=== PATIENT | female | born 1970 | race Caucasian/White ===

== ENCOUNTER → 2016-07-29 | Outpatient (CLI) | payer OTHER ==
[~2016-07-29] MED LIST: BCPILLS PO; CETI10TA84 PO; FLUT0.15 NAE; LORA-741 PO; OXYC-57 PO; VENL75CA PO
--- NOTE | 2016-07-30 12:37 | MAMMOGRAPHY REPORT ---
BILATERAL DIGITAL SCREENING MAMMOGRAM TOMOSYNTHESIS WITH CAD: 07/29/2016 CLINICAL HISTORY: Routine screening. Patient has no complaints. TECHNIQUE: Breast tomosynthesis in addition to standard 2D mammography was performed. Current study was also evaluated with a Computer Aided Detection (CAD) system. COMPARISON: Comparison is made to exams dated: 07/05/2013 mammogram, 02/20/2011 mammogram - [facility], and 01/14/2009. BREAST COMPOSITION: There are scattered areas of fibroglandular density in both breasts. The breas t parenchyma is increasingly fatty replaced compared to prior mammograms. FINDINGS: No suspicious mass, architectural distortion or cluster of microcalcifications is seen. IMPRESSION: ACR BI-RADS CATEGORY 1: NEGATIVE There is no mammographic evidence of malignancy. A 1 year screening mammogram is recommended. The p atient will receive written notification of the results. Approximately 10% of breast cancers are not detected with mammography. A negative mammographic repor t should not delay biopsy if a clinically suggestive mass is present. Felisa Lino M.D. ay/:07/29/2016 22:08:04 Plate Printer: Nimco MONTEIRO(Beltran)(Elsy), [facility] letter sent: Normal 1/2 BI-RADS Code: ACR BI-RADS Category 1: Negative
== END | disposition home or self-care (01) ==
LOC: C.MAMM 10:02
PROVIDERS: ATTEND Obstetrics & Gynecology
DX: Z12.31 Encounter for screening mammogram for malignant neoplasm of breast (principal)

== ENCOUNTER 2016-08-31 09:20 | Observation (INO) | payer OTHER ==
[~2016-08-31] VITALS: Ht 165.1 cm; Wt 96.5 kg
[2016-08-31] VITALS (7 sets, daily range): BP systolic 127–145; BP diastolic 83–92; PULSE 79–91; TEMP 36.4–37; O2SAT 94–99; Ht 165.1 cm; Wt 96.5 kg
[2016-08-31] MEDS ORDERED: SODIUM CHLORIDE 0.9% 1000ML 1,000 ML IV STA (09:44)
[2016-08-31] MEDS ORDERED: ONDANSETRON INJ 2 MG/ML 2 ML VIAL IV STA (09:44)
[2016-08-31] MEDS ORDERED: SODIUM CHLORIDE 0.9% 1000ML 500 ML IV STA (09:44)
[2016-08-31 09:56] LABS: BASO % 0.2 %; BASO ABS # 0.02 K/uL (0-0.2); COMPLETE YES; EOS % 1.7 %; HEMATOCRIT 42.2 % (37-47); IG% 0.2 %; LYMPH % 28.8 %; LYMPH ABS # 2.68 K/uL (1.2-3.4); MEAN CELL VOLUME 87.9 fL (80-100); MEAN CORPUSCULAR HEMOGLOBIN 30.8 pg (25-34); MEAN CORPUSCULAR HGB CONC 35.1 g/dl (32-36); MEAN PLATELET VOLUME 10.3 fL (7.4-10.4); MONO % 6.5 %; NEUT % 62.6 %; PLATELET COUNT 271 K/uL (130-400); WHITE BLOOD COUNT 9.32 K/uL (4.8-10.8)
[2016-08-31] MEDS ORDERED: OPTIRAY 320 IV PRN (10:00)
[2016-08-31] MEDS ORDERED: LORA-741 PO (10:01)
[2016-08-31] MEDS ORDERED: CETI10TA84 PO (10:01)
[2016-08-31] MEDS ORDERED: FLUT0.15 NAE (10:01)
[2016-08-31] MEDS ORDERED: VENL75CA PO (10:01)
[2016-08-31] MEDS ORDERED: BCPILLS PO (10:01)
[2016-08-31 10:14] LABS: PREG INTERNAL NEGATIVE QC NEG CLEAR BACKGROUND; PREG INTERNAL POSITIVE QC POS CONTROL LINE
[2016-08-31 10:24] LABS: ALB/GLOB RATIO 0.8 (0.9-2); CALCIUM 8.4 mg/dl (8.5-10.1); CREATININE 0.93 mg/dl (0.60-1.20); POTASSIUM 3.8 mmol/L (3.5-5.1)
--- NOTE | 2016-08-31 11:06 | DIAGNOSTIC IMAGING REPORT ---
ABDOMINAL ULTRASOUND, RIGHT LOWER QUADRANT HISTORY: Pain. Nausea. ABDOMINAL PAIN. COMPARISON: None. FINDINGS: The appendix is not identified ultrasonically. IMPRESSION: The appendix is not identified ultrasonically Electronically signed by: Memo Amos M.D. 08/31/2016 11:04 AM Dictated Date/Time: 08/31/2016 11:03 AM
--- NOTE | 2016-08-31 11:08 | DIAGNOSTIC IMAGING REPORT ---
ULTRASOUND OF THE PELVIS CLINICAL HISTORY: Right pelvic pain. COMPARISON STUDY: No priors. TECHNIQUE: Real-time, grayscale, and color flow sonography of the pelvis is performed both transabdominally and endovaginally. Images are reviewed in the transverse and longitudinal planes. FINDINGS: Uterus: The uterus is normal in size and echotexture, measuring 8.0 x 4.6 x 4.9 cm. Endometrium: The endometrium is normal in appearance, and the endometrial stripe is normal in thickness measuring up to 0.4 cm. Ovaries: The right ovary was not visualized. The left ovary is normal in appearance and measures 1.5 x 0.7 x 1.0 cm. Normal Doppler waveforms are shown within the left ovary. Pelvis: There is trace free fluid in the cul-de-sac. No concerning adnexal lesion is seen. A hypoechoic tubular structure in the right adnexa is indeterminant. IMPRESSION: 1. Unremarkable sonographic assessment of the uterus and left ovary. 2. The right ovary was not visualized. 3. A hypoechoic tubular structure in the right adnexa is indeterminant and may represent hydrosalpinx. 4. There is trace free fluid in the cul-de-sac, likely within physiologic limits. Electronically signed by: Ralph Mcelroy M.D. 08/31/2016 11:06 AM Dictated Date/Time: 08/31/2016 11:04 AM
--- NOTE | 2016-08-31 12:44 | DIAGNOSTIC IMAGING REPORT ---
ABDOMEN AND PELVIS CT WITH IV AND ORAL CONTRAST CT DOSE: 842.39 mGy.cm HISTORY: Flank pain ABDOMINAL PAIN/GI TECHNIQUE: Multiaxial CT images of the abdomen and pelvis were performed following the use of intravenous and oral contrast. COMPARISON STUDY: None. FINDINGS: Lung bases are clear. Liver spleen and pancreas enhance uniformly. Gallbladder is normal. Kidneys enhance uniformly. They are negative for hydronephrosis. Bowel pattern overall is nonobstructive. The appendix is identified inferior to the cecum at approximately level of the right superiorly iliac crest. It has maximum diameter 10 to 11 mm. There is moderate rachel appendiceal infiltrative change. There is no evidence for abscess collection or phlegmon. There are no bowel obstructive changes. Uterus is anteflexed. Bladder is midline. There is no significant free fluid within the pelvic cul-de-sac. IMPRESSION: 1. Acute appendicitis.. 2. Moderate periappendiceal infiltrative change. 3. No evidence for abscess collection or obstructive change. Electronically signed by: Memo Amos M.D. 08/31/2016 12:43 PM Dictated Date/Time: 08/31/2016 12:39 PM
[2016-08-31] MEDS ORDERED: LIDOCAINE HCL 2% 2 ML VIAL (20MG/ML) ONE (13:25)
[2016-08-31] MEDS ORDERED: PROPOFOL IV EMULSION 10 MG/ML 20 ML VIAL IV ONE (13:25)
[2016-08-31] MEDS ORDERED: MIDAZOLAM HCL 1 MG/ML 2ML VIAL ONE (13:25)
[2016-08-31] MEDS ORDERED: NEOSTIGMINE METHYLSULFATE 5 MG/5 ML SYR ONE (13:25)
[2016-08-31] MEDS ORDERED: LARYING-O-JET KIT (LTA) EXT ONE ×4 (13:25→14:26)
[2016-08-31] MEDS ORDERED: DEXAMETHASONE SOD INJ 4 MG/ML VIAL ONE (13:25)
[2016-08-31] MEDS ORDERED: ONDANSETRON INJ 2 MG/ML 2 ML VIAL ONE (13:25)
[2016-08-31] MEDS ORDERED: FENTANYL CITRATE INJ 50 MCG/1 ML 2 ML VIAL ONE ×2 (13:25)
[2016-08-31] MEDS ORDERED: ROCURONIUM BROMIDE 10 MG/ML 5 ML VIAL ONE (13:25)
[2016-08-31] MEDS ORDERED: KETOROLAC TROMETHAMINE 30 MG/ML VIAL ONE (13:25)
[2016-08-31] MEDS ORDERED: GLYCOPYRROLATE INJ 0.2 MG/ML VIAL ONE (13:25)
[2016-08-31] MEDS ORDERED: CEFAZOLIN SOD 1 GM VIAL ONE (13:26)
--- NOTE | 2016-08-31 13:37 | History and Physical ---
History & Physical Date & Time of Service: Aug 31, 2016 at 13:26 Chief Complaint: Nausea, Lower Rt Abd. Pain Primary Care Physician: Stanford Mayer M.D. History of Present Illness Source: patient Arlen is a pleasant 46 year-old female who presented to emergency department today with complaint of RLQ abdominal pain since Wednesday evening with associated nausea. Arlen states that she thought she was getting her period due to the abdominal cramping however the pain persisted and was different than her usual menstrual cramps. Arlen states the nausea was intense Wednesday evening. Was in her normal state of health on Wednesday. Denies of any fever, chills, vomiting, diarrhea, constipation, or blood in stools. No previous abdominal surgeries. No blood thinning agents. CT scan of abdomen and pelvis shows a dilated appendix measuring 10-11 mm in diameter with rachel-appendiceal inflammation. NO signs of abscess or perforation. No leukocytosis and afebrile on arrival to ED. Currently her pain is minimal. Mostly in the RLQ. No severe pain, no fevers, or chills. Past Medical/Surgical History 1. Seasonal allergies 2. History of tooth extraction requiring oral surgery Family History Ovarian cyst Social History Smoking Status: Never Smoker Alcohol Use: occasionally Drug Use: none Marital Status: Housing status: lives with family Occupational Status: employed Multi-Drug Resistant Organisms History of MDRO: No Allergies Coded Allergies: Amoxicillin (Verified Allergy, Unknown, hives, 08/31/16) Home Medications Scheduled Control Pills ( Control Pills), 1 TAB PO DAILY Cetirizine (Zyrtec), 10 MG PO DAILY Fluticasone Propionate (Nasal) (Flonase Allergy Relief), 1 SPRAY YOSI DAILY Venlafaxine Hcl (Effexor Xr), 75 MG PO DAILY Scheduled PRN Lorazepam (Ativan), 0.5 MG PO DAILY PRN for Anxiety Review of Systems Constitutional: No chills, No fever, No sweats Respiratory: No shortness of breath Cardiovascular: No chest pain Abdomen: + nausea, + pain (RLQ), No constipation, No diarrhea, No vomiting Genitourinary - Female: No dysuria, No urinary frequency, No urinary urgency Allergic / Immunologic: + food allergies, + seasonal allergies Physical Exam Vital Signs Date Time Temp Pulse Resp B/P Pulse Ox O2 Delivery O2 Flow Rate FiO2 08/31/16 13:02 82 20 181/115 98 Room Air 08/31/16 11:17 78 20 152/99 99 Room Air 08/31/16 09:28 37.2 101 20 182/108 98 Room Air General Appearance: WD/WN, no apparent distress Head: normocephalic, atraumatic Eyes: sclerae normal ENT: hearing grossly normal Neck: supple, trachea midline Respiratory/Chest: lungs clear, normal breath sounds, no respiratory distress, no accessory muscle use Cardiovascular: regular rate, rhythm, no edema, no gallop, no murmur Abdomen/GI: soft, no organomegaly, no pulsatile mass, + tenderness (RLQ, ) Neurologic/Psych: alert, normal mood/affect, oriented x 3 Skin: normal color, warm/dry, no rash Diagnostics Laboratory Results Results Past 24 Hours Test 08/31/16 09:38 Range/Units White Blood Count 9.32 4.8-10.8 K/uL Red Blood Count 4.80 4.2-5.4 M/uL Hemoglobin 14.8 12.0-16.0 g/dL Hematocrit 42.2 37-47 % Mean Corpuscular Volume 87.9 80-100 fL Mean Corpuscular Hemoglobin 30.8 25-34 pg Mean Corpuscular Hemoglobin Concent 35.1 32-36 g/dl Platelet Count 271 130-400 K/uL Mean Platelet Volume 10.3 7.4-10.4 fL Neutrophils (%) (Auto) 62.6 % Lymphocytes (%) (Auto) 28.8 % Monocytes (%) (Auto) 6.5 % Eosinophils (%) (Auto) 1.7 % Basophils (%) (Auto) 0.2 % Neutrophils # (Auto) 5.83 1.4-6.5 K/uL Lymphocytes # (Auto) 2.68 1.2-3.4 K/uL Monocytes # (Auto) 0.61 0.11-0.59 K/uL Eosinophils # (Auto) 0.16 0-0.5 K/uL Basophils # (Auto) 0.02 0-0.2 K/uL RDW Standard Deviation 42.9 36.4-46.3 fL RDW Coefficient of Variation 13.2 11.5-14.5 % Immature Granulocyte % (Auto) 0.2 % Immature Granulocyte # (Auto) 0.02 0.00-0.02 K/uL Sodium Level 141 136-145 mmol/L Potassium Level 3.8 3.5-5.1 mmol/L Chloride Level 108 98-107 mmol/L Carbon Dioxide Level 27 21-32 mmol/L Anion Gap 6.0 3-11 mmol/L Blood Urea Nitrogen 17 7-18 mg/dl Creatinine 0.93 0.60-1.20 mg/dl Est Creatinine Clear Calc Drug Dose 85.0 ml/min Estimated GFR () 84.2 Estimated GFR (Non- 72.7 BUN/Creatinine Ratio 18.0 10-20 Random Glucose 91 70-99 mg/dl Calcium Level 8.4 8.5-10.1 mg/dl Total Bilirubin 0.3 0.2-1 mg/dl Aspartate Amino Transf (AST/SGOT) 24 15-37 U/L Alanine Aminotransferase (ALT/SGPT) 38 12-78 U/L Alkaline Phosphatase 123 45-117 U/L Total Protein 8.1 6.4-8.2 gm/dl Albumin 3.6 3.4-5.0 gm/dl Globulin 4.5 2.5-4.0 gm/dl Albumin/Globulin Ratio 0.8 0.9-2 Lipase 153 73-393 U/L Human Chorionic Gonadotropin, Qual NEG NEG Chemistry Specimen Hemolysis Diagnostic Radiology ABDOMEN AND PELVIS CT WITH IV AND ORAL CONTRAST CT DOSE: 842.39 mGy.cm HISTORY: Flank pain ABDOMINAL PAIN/GI TECHNIQUE: Multiaxial CT images of the abdomen and pelvis were performed following the use of intravenous and oral contrast. COMPARISON STUDY: None. FINDINGS: Lung bases are clear. Liver spleen and pancreas enhance uniformly. Gallbladder is normal. Kidneys enhance uniformly. They are negative for hydronephrosis. Bowel pattern overall is nonobstructive. The appendix is identified inferior to the cecum at approximately level of the right superiorly iliac crest. It has maximum diameter 10 to 11 mm. There is moderate rachel appendiceal infiltrative change. There is no evidence for abscess collection or phlegmon. There are no bowel obstructive changes. Uterus is anteflexed. Bladder is midline. There is no significant free fluid within the pelvic cul-de-sac. IMPRESSION: 1. Acute appendicitis.. 2. Moderate periappendiceal infiltrative change. 3. No evidence for abscess collection or obstructive change. Impression Assessment and Plan Acute Appendicitis - dilated measuring 10-11 mm, periappendiceal inflammation seen on CT scan. - no leukocytosis - afebrile - no evidence of perforation or abscess formation Plan: Plan to take patient to Operating room for laparoscopic appendectomy Informed patient of procedure and risks including bleeding, infection, injury to surrounding organs and tissue, cardiopulmonary complications, post-op seroma or hematoma patient understood and informed consent obtained. Will determine need for overnight stay following procedure Dr. Cano has seen and examined patient, agrees with above stated findings and treatment plan.
[2016-08-31] MEDS ORDERED: ONDANSETRON INJ 2 MG/ML 2 ML VIAL IV PRN ×3 (13:45→14:00)
[2016-08-31] MEDS ORDERED: ACETAMINOPHEN 325 MG TAB PO PRN (13:45)
[2016-08-31] MEDS ORDERED: OXYCODONE/ACETAMINOPHEN 5-325 TAB PO PRN (13:45)
[2016-08-31] MEDS ORDERED: EpHEDrine SULFATE INJ 50 MG/ML AMP IV PRN ×2 (13:45→14:00)
[2016-08-31] MEDS ORDERED: POLYETHYLENE (MIRALAX) 17 GM PACK PO PRN (13:45)
[2016-08-31] MEDS ORDERED: ALUMINUM/MAGNESIUM/SIMETH (MAALOX MAX) 30 ML UDC PO PRN (13:45)
[2016-08-31] MEDS ORDERED: FENTANYL CITRATE INJ 50 MCG/1 ML 2 ML VIAL IV PRN ×2 (13:45→14:00)
[2016-08-31] MEDS ORDERED: HYDROmorphone INJ 1 MG/ML SYR IV PRN ×2 (13:45→14:00)
[2016-08-31] MEDS ORDERED: ATROPINE SULFATE 0.1 MG/ML 5ML SYR IV PRN ×2 (13:45→14:00)
[2016-08-31] MEDS ORDERED: ZOLPIDEM TARTRATE 5 MG TAB PO PRN (13:45)
[2016-08-31] MEDS ORDERED: MAGNESIUM HYDROXIDE SUSP 30 ML UDC PO PRN (13:45)
[2016-08-31] MEDS ORDERED: MEPERIDINE HCL 25 MG/ML CARP IV PRN ×2 (13:45→14:00)
[2016-08-31] MEDS ORDERED: MoRPHine SULFATE 2 MG/ML CARP IV PRN (13:45)
[2016-08-31] MEDS ORDERED: LABETALOL HCL IV 5 MG/ML 20ML IV PRN ×2 (13:45→14:00)
[2016-08-31] MEDS ORDERED: IV FLUIDS COMPLETED PRN (14:00)
[2016-08-31] MEDS ORDERED: BUPIVACAINE/EPINEPHRINE 0.5% MPF 1:200,000 30 ML VIAL ONE (14:10)
--- NOTE | 2016-08-31 14:45 | [facility] Post Operative Brief Note ---
Immediate Operative Summary Operative Date Aug 31, 2016. Pre-Operative Diagnosis acute appendicitis Post-Operative Diagnosis same Procedure(s) Performed laparoscopic appendectomy Surgeon taina Vault Custodian Surgeon(s) mason Estimated Blood Loss 5cc Findings acute appendicitis Specimens appendix Drains none Anesthesia GETA w/marcaine Complication(s) None Disposition Recovery Room / PACU
[2016-08-31] MEDS ORDERED: OXYC-57 PO (14:48)
--- NOTE | 2016-08-31 14:51 | Discharge Instructions ---
Discharge Instructions Date of Service Aug 31, 2016. Admission Reason for Admission: Nausea, Lower Rt Abd. Pain Discharge Discharge Diagnosis / Problem: acute appendicitis Discharge Goals Goal(s): Therapeutic intervention Activity Recommendations Activity Limitations: per Instructions/Follow-up section Lifting Limitations: no more than 25 pounds Exercise/Sports Limitations: as tolerated May Resume Sexual Activity: when tolerated Shower/Bathe: tomorrow Driving or Machine Use: resume 3 days after discharge (as long as not taking narcotics) . Current Hospital Diet Patient's current hospital diet: Clear Liquid Diet Discharge Diet Recommended Diet: Regular Diet Procedures Procedures Performed: laparoscopic appendectomy Pending Studies Studies pending at discharge: no Work Instructions Return To Work: after follow-up Additional Instructions: return on light duty as tolerated Medical Emergencies . Who to Call and When: Medical Emergencies: If at any time you feel your situation is an emergency, please call 911 immediately. . Non-Emergent Contact Non-Emergency issues call your: Primary Care Provider, Surgeon Call Non-Emergent contact if: temperature is above 101.5, your pain is not controlled, your pain is worsening, your pain is concerning you, wound has increased redness, wound has increased pain . "Provider Documentation" section prepared by Evangelist Cano. VTE Core Measure Inpt VTE Proph given/why not?: SCD's [place] Drug Monitoring Program Search Results: patient reviewed within database
--- NOTE | 2016-08-31 15:10 | EMERGENCY ROOM VISIT NOTE ---
History Report prepared by Meng: Jeanette Gibson Under the Supervision of: Dr. Ralph Rogers M.D. First contact with patient: 09:39 Chief Complaint: ABDOMINAL PAIN Stated Complaint: NAUSEA, LOWER RT ABD. PAIN Nursing Triage Summary: Patient reports RLQ pain since early Wednesday morning with nausea. Patient denies any vomiting or diarrhea. Patient at first thought that the pain was cramping because it is time for her menses. History of Present Illness The patient is a 46 year old female who presents to the Emergency Room with complaints of persistent RLQ pain starting 3 days ago. She rates her discomfort as a 3/10 in severity. In the middle of the night 3 days ago, she began to experience cramping and nausea. She initially attributed it to her menstrual period, but her period has not started. She spent a lot of the next day sleeping. Yesterday, she experienced this pain all day and it continues on today , prompting her to present to the ED. She notices the pain more when she walks, bends over, or presses on the area. She is also experiencing nausea. She denies any urinary symptoms, vaginal discharge, diarrhea, fever, chills, or constipation. She reports that she still has her appendix and gallbladder. She denies any history of ovarian cysts, but adds that her mother has had ovarian cysts before. She does not believe that she is . She has no history of abdominal surgery. Source of History: patient Onset: 3 days ago Position: abdomen (RLQ) Symptom Intensity: 3/10 Timing: other (persistent) Modifying Factors (Worsening): movement, other (palpation) Associated Symptoms: No chills, No diarrhea, No fevers, No urinary symptoms Note: Pt denies constipation or vaginal discharge. Review of Systems See HPI for pertinent positives & negatives. A total of 10 systems reviewed and were otherwise negative. Past Medical & Surgical Medical Problems: (1) Appendicitis (2) No Known Active Medical Problems Family History Ovarian cyst Social History Smoking Status: Never Smoker Marital Status: Housing Status: lives with family Occupation Status: employed Current/Historical Medications Scheduled Control Pills ( Control Pills), 1 TAB PO DAILY Cetirizine (Zyrtec), 10 MG PO DAILY Fluticasone Propionate (Nasal) (Flonase Allergy Relief), 1 SPRAY YOSI DAILY Venlafaxine Hcl (Effexor Xr), 75 MG PO DAILY Scheduled PRN Lorazepam (Ativan), 0.5 MG PO DAILY PRN for Anxiety Oxycodone/Acetaminophen 5MG/325MG (Percocet 5MG/325MG), 1 TABLET PO Q4H PRN for Pain Allergies Coded Allergies: Amoxicillin (Verified Allergy, Unknown, hives, 08/31/16) Physical Exam Vital Signs Date Time Temp Pulse Resp B/P Pulse Ox O2 Delivery O2 Flow Rate FiO2 08/31/16 13:42 78 20 183/113 100 08/31/16 13:29 99 Room Air 08/31/16 13:02 82 20 181/115 98 Room Air 08/31/16 11:17 78 20 152/99 99 Room Air 08/31/16 09:28 37.2 101 20 182/108 98 Room Air Physical Exam GENERAL: Patient is in no acute distress. HEENT: No acute trauma, normocephalic atraumatic, mucous membranes moist, no nasal congestion, no scleral icterus. NECK: No stridor, no adenopathy, no meningismus, trachea is midline. LUNGS: Clear to auscultation bilaterally, no wheeze, no rhonchi, breath sounds equal. HEART: 2/6 systolic murmur. Regular rate and rhythm. ABDOMEN: Soft, moderately tender in RLQ, bowel sounds positive, no hernias, no peritonitis. EXTREMITIES: No cyanosis or edema, full range of motion of all the joints without pain or difficulty, no signs for acute trauma. NEUROLOGIC: Oriented x 3, no acute motor or sensory deficits, no focal weakness. SKIN: No rash, no jaundice, no diaphoresis. Medical Decision & Procedures ER Provider Diagnostic Interpretation: Radiology results and stated below per my review and radiologist interpretation: ABDOMINAL ULTRASOUND, RIGHT LOWER QUADRANT HISTORY: Pain. Nausea. ABDOMINAL PAIN. COMPARISON: None. FINDINGS: The appendix is not identified ultrasonically. IMPRESSION: The appendix is not identified ultrasonically Electronically signed by: Memo Amos M.D. 08/31/2016 11:04 AM Dictated Date/Time: 08/31/2016 11:03 AM ULTRASOUND OF THE PELVIS CLINICAL HISTORY: Right pelvic pain. COMPARISON STUDY: No priors. TECHNIQUE: Real-time, grayscale, and color flow sonography of the pelvis is performed both transabdominally and endovaginally. Images are reviewed in the transverse and longitudinal planes. FINDINGS: Uterus: The uterus is normal in size and echotexture, measuring 8.0 x 4.6 x 4.9 cm. Endometrium: The endometrium is normal in appearance, and the endometrial stripe is normal in thickness measuring up to 0.4 cm. Ovaries: The right ovary was not visualized. The left ovary is normal in appearance and measures 1.5 x 0.7 x 1.0 cm. Normal Doppler waveforms are shown within the left ovary. Pelvis: There is trace free fluid in the cul-de-sac. No concerning adnexal lesion is seen. A hypoechoic tubular structure in the right adnexa is indeterminant. IMPRESSION: 1. Unremarkable sonographic assessment of the uterus and left ovary. 2. The right ovary was not visualized. 3. A hypoechoic tubular structure in the right adnexa is indeterminant and may represent hydrosalpinx. 4. There is trace free fluid in the cul-de-sac, likely within physiologic limits. Electronically signed by: Ralph Mcelroy M.D. 08/31/2016 11:06 AM Dictated Date/Time: 08/31/2016 11:04 AM ULTRASOUND OF THE PELVIS CLINICAL HISTORY: Right pelvic pain. COMPARISON STUDY: No priors. TECHNIQUE: Real-time, grayscale, and color flow sonography of the pelvis is performed both transabdominally and endovaginally. Images are reviewed in the transverse and longitudinal planes. FINDINGS: Uterus: The uterus is normal in size and echotexture, measuring 8.0 x 4.6 x 4.9 cm. Endometrium: The endometrium is normal in appearance, and the endometrial stripe is normal in thickness measuring up to 0.4 cm. Ovaries: The right ovary was not visualized. The left ovary is normal in appearance and measures 1.5 x 0.7 x 1.0 cm. Normal Doppler waveforms are shown within the left ovary. Pelvis: There is trace free fluid in the cul-de-sac. No concerning adnexal lesion is seen. A hypoechoic tubular structure in the right adnexa is indeterminant. IMPRESSION: 1. Unremarkable sonographic assessment of the uterus and left ovary. 2. The right ovary was not visualized. 3. A hypoechoic tubular structure in the right adnexa is indeterminant and may represent hydrosalpinx. 4. There is trace free fluid in the cul-de-sac, likely within physiologic limits. Electronically signed by: Ralph Mcelroy M.D. 08/31/2016 11:06 AM Dictated Date/Time: 08/31/2016 11:04 AM ABDOMEN AND PELVIS CT WITH IV AND ORAL CONTRAST CT DOSE: 842.39 mGy.cm HISTORY: Flank pain ABDOMINAL PAIN/GI TECHNIQUE: Multiaxial CT images of the abdomen and pelvis were performed following the use of intravenous and oral contrast. COMPARISON STUDY: None. FINDINGS: Lung bases are clear. Liver spleen and pancreas enhance uniformly. Gallbladder is normal. Kidneys enhance uniformly. They are negative for hydronephrosis. Bowel pattern overall is nonobstructive. The appendix is identified inferior to the cecum at approximately level of the right superiorly iliac crest. It has maximum diameter 10 to 11 mm. There is moderate rachel appendiceal infiltrative change. There is no evidence for abscess collection or phlegmon. There are no bowel obstructive changes. Uterus is anteflexed. Bladder is midline. There is no significant free fluid within the pelvic cul-de-sac. IMPRESSION: 1. Acute appendicitis.. 2. Moderate periappendiceal infiltrative change. 3. No evidence for abscess collection or obstructive change. Electronically signed by: Memo Amos M.D. 08/31/2016 12:43 PM Dictated Date/Time: 08/31/2016 12:39 PM Laboratory Results 08/31/16 09:38 Red Blood Count 4.80, Mean Corpuscular Volume 87.9, Mean Corpuscular Hemoglobin 30.8, Mean Corpuscular Hemoglobin Concent 35.1, Mean Platelet Volume 10.3, Neutrophils (%) (Auto) 62.6, Lymphocytes (%) (Auto) 28.8, Monocytes (%) (Auto) 6.5, Eosinophils (%) (Auto) 1.7, Basophils (%) (Auto) 0.2, Neutrophils # (Auto) 5.83, Lymphocytes # (Auto) 2.68, Monocytes # (Auto) 0.61, Eosinophils # (Auto) 0.16, Basophils # (Auto) 0.02 08/31/16 09:38 Test 08/31/16 09:38 White Blood Count 9.32 K/uL (4.8-10.8) Red Blood Count 4.80 M/uL (4.2-5.4) Hemoglobin 14.8 g/dL (12.0-16.0) Hematocrit 42.2 % (37-47) Mean Corpuscular Volume 87.9 fL (80-100) Mean Corpuscular Hemoglobin 30.8 pg (25-34) Mean Corpuscular Hemoglobin Concent 35.1 g/dl (32-36) Platelet Count 271 K/uL (130-400) Mean Platelet Volume 10.3 fL (7.4-10.4) Neutrophils (%) (Auto) 62.6 % Lymphocytes (%) (Auto) 28.8 % Monocytes (%) (Auto) 6.5 % Eosinophils (%) (Auto) 1.7 % Basophils (%) (Auto) 0.2 % Neutrophils # (Auto) 5.83 K/uL (1.4-6.5) Lymphocytes # (Auto) 2.68 K/uL (1.2-3.4) Monocytes # (Auto) 0.61 K/uL (0.11-0.59) Eosinophils # (Auto) 0.16 K/uL (0-0.5) Basophils # (Auto) 0.02 K/uL (0-0.2) RDW Standard Deviation 42.9 fL (36.4-46.3) RDW Coefficient of Variation 13.2 % (11.5-14.5) Immature Granulocyte % (Auto) 0.2 % Immature Granulocyte # (Auto) 0.02 K/uL (0.00-0.02) Anion Gap 6.0 mmol/L (3-11) Est Creatinine Clear Calc Drug Dose 85.0 ml/min Estimated GFR () 84.2 Estimated GFR (Non- 72.7 BUN/Creatinine Ratio 18.0 (10-20) Calcium Level 8.4 mg/dl (8.5-10.1) Total Bilirubin 0.3 mg/dl (0.2-1) Aspartate Amino Transf (AST/SGOT) 24 U/L (15-37) Alanine Aminotransferase (ALT/SGPT) 38 U/L (12-78) Alkaline Phosphatase 123 U/L (45-117) Total Protein 8.1 gm/dl (6.4-8.2) Albumin 3.6 gm/dl (3.4-5.0) Globulin 4.5 gm/dl (2.5-4.0) Albumin/Globulin Ratio 0.8 (0.9-2) Lipase 153 U/L (73-393) Human Chorionic Gonadotropin, Qual NEG (NEG) Chemistry Specimen Hemolysis Laboratory results reviewed by me. Medications Administered Medications (Trade) Dose Ordered Sig/Angelica Route Start Time Stop Time Status Last Admin Dose Admin Sodium Chloride (Nss 1000ml) 500 ml @ 999 mls/hr Q31M STAT IV 08/31/16 09:44 08/31/16 10:14 DC 08/31/16 09:58 999 MLS/HR Ondansetron HCl 4 mg 4 mg NOW STAT IV 08/31/16 09:44 08/31/16 09:49 DC 08/31/16 09:58 4 MG Sodium Chloride (Nss 1000ml) 1,000 ml @ 200 mls/hr Q5H STAT IV 08/31/16 09:44 08/31/16 14:43 DC 08/31/16 09:59 200 MLS/HR Cefazolin Sodium 2000 mg 2,000 mg STK-MED ONCE .ROUTE 08/31/16 13:26 08/31/16 13:30 DC 08/31/16 13:26 2,000 MG Lactated Ringer's (Lr 1000ml) 1,000 ml @ 100 mls/hr Q10H IV 08/31/16 13:45 09/30/16 13:44 08/31/16 16:13 100 MLS/HR ED Course 0942: The patient was evaluated in room A11. A complete history and physical exam was performed. 0944: NSS 1000 ml @ 200 mls/hr IV, Zofran Inj 4 mg IV, NSS 500 ml @ 999 mls/hr IV. 1124: I reevaluated the patient. She is doing fine. I updated the patient on the results. 1251: I discussed the patient's case with the general surgical services PA. They will evaluate the patient. 1256: I reevaluated the patient. I discussed with her all the results and the treatment plan. She verbalized understanding and agreement. She will be evaluated by general surgery. Medical Decision Differential diagnoses: appendicitis, ovarian cysts, musculoskeletal pain, hernia, biliary colic, UTI, , mesenteric adenitis. There is no leukocytosis or concerning anemia. No significant electrolyte abnormality, kidney failure or hepatitis. There is no pancreatitis. testing is negative. Pelvic ultrasound could not visualize the right ovary but the left ovary was normal. Abdominal ultrasound could not visualize the appendix. Abdominal and pelvis CT suggests acute appendicitis without perforation. The patient received IV Zofran and IV saline, she did not require anything for pain. With the findings of appendicitis, I did speak with general surgery. The patient will be undergoing an appendectomy. I spoke to the patient, I talked with case management. Consults Time Called: 1246 Consulting Physician: General surgical services PA Returned Call: [phone] I discussed the patient's case with the general surgical services PA. They will evaluate the patient. Impression Primary Impression: Acute appendicitis Scribe Attestation The scribe's documentation has been prepared under my direction and personally reviewed by me in its entirety. I confirm that the note above accurately reflects all work, treatment, procedures, and medical decision making performed by me. Departure Information Dispostion Being Evaluated By Surgeon Prescriptions Oxycodone/Acetaminophen 5MG/325MG (PERCOCET 5MG/325MG) Tab 1 TABLET PO Q4H Y for Pain, #30 TAB Prov: Evangelist Cano M.D. 08/31/16 Referrals Stanford Mayer M.D. (PCP) Patient Instructions My [facility]
[2016-08-31] MEDS ORDERED: MoRPHine SULFATE 4 MG/ML 1 ML CARP\\VIAL IV PRN (15:15)
--- NOTE | 2016-08-31 15:24 | OPERATIVE REPORT ---
DATE OF OPERATION: 08/31/2016 PREOPERATIVE DIAGNOSIS: Acute appendicitis. POSTOPERATIVE DIAGNOSIS: Same. PROCEDURE PERFORMED: Laparoscopic appendectomy. SURGEON: Dr. Evangelist Cano. SOCIAL SECURITY ASSESSOR: Latanya Cardenas PA-C. ANESTHESIA: General endotracheal with 0.5% Marcaine with epinephrine local. ESTIMATED BLOOD LOSS: 5 mL. SPECIMENS: Appendix to pathology. DRAINS: None. COMPLICATIONS: None. INDICATION FOR PROCEDURE: This is a 46-year-old female who came to the ER complaining of some abdominal pain, had a complete workup with CT scan showing an inflamed and dilated appendix, consistent with acute appendicitis. She had peritoneal signs on exam in right lower quadrant. I talked to her in detail about her findings and recommended laparoscopic appendectomy. We talked about the risk of an open procedure, bleeding, wound problems, injury to the internal organs and open procedure. She understands all this and wishes to proceed. DESCRIPTION OF PROCEDURE: The patient was taken to the OR and underwent excellent general endotracheal anesthesia. Abdomen was prepped and draped in normal sterile fashion. Transverse supraumbilical incision was made and a Veress needle was inserted into peritoneal cavity. Good pneumoperitoneum was achieved to 15 mmHg pressure. A visualized 11 port was then placed. A 12 left lower quadrant, a 5 suprapubic and a 5 right upper quadrant ports were placed in normal fashion. The patient was placed in head down and rolled to the left. The obvious inflamed appendix was identified. This was somewhat adherent to her cecum. This was peeled away bluntly. A Jeannine clamp was used to grasp the base of the cecum on the tenia. The tip of the appendix was grasped. This placed the mesoappendix on tension. A Harmonic scalpel was used to take down the blood supply down to the base of the appendix. A PILAR stapler purple load 60 was used to transect the appendix. Appendix was then brought out with an Endobag and sent for pathologic evaluation. Pneumoperitoneum was reestablished. 500 mL of saline was used to irrigate out the right lower quadrant. The staple line was intact and showed no bleeding. Terminal ileum was normal. The pelvic organs were normal, both ovaries showed no abnormalities. The abdomen was then suctioned to clear. Ports were then removed. Pneumoperitoneum was decompressed. 0 Vicryl was used to close the fascial defect at 11 and 12 ports. 0.5% Marcaine with epinephrine local was used to create a local field block. Interrupted 4-0 Vicryl suture was used to close the skin. Steri-Strips and benzoin were used to reinforce the incision. Sterile dressings were applied. The patient tolerated the procedure well without any complications, sent to postop recovery area for a period of observation and discharged up to her room once she meets criteria. I attest to the content of the Intraoperative Record and any orders documented therein. Any exceptio ns are noted below.
--- NOTE | 2016-08-31 15:45 | Anesthesiology Progress Note ---
Anesthesia Post Op Note Date & Time Aug 31, 2016 at 15:45 Vital Signs Pain Intensity: 0 Vital Signs Past 12 Hours Date Time Temp Pulse Resp B/P Pulse Ox O2 Delivery O2 Flow Rate FiO2 08/31/16 15:35 36.2 84 16 154/92 100 Nasal Cannula 2 08/31/16 15:25 79 16 155/93 100 Nasal Cannula 2 08/31/16 15:15 79 16 163/95 100 Nasal Cannula 2 08/31/16 15:05 81 16 165/90 100 Mask 10 08/31/16 14:56 36.1 70 16 155/92 99 Mask 10 08/31/16 13:52 36.9 82 16 178/97 96 Room Air 08/31/16 13:42 78 20 183/113 100 08/31/16 13:29 99 Room Air 08/31/16 13:02 82 20 181/115 98 Room Air 08/31/16 11:17 78 20 152/99 99 Room Air 08/31/16 09:28 37.2 101 20 182/108 98 Room Air Notes Mental Status: alert / awake / arousable, participated in evaluation Pt Amnestic to Procedure: Yes Nausea / Vomiting: adequately controlled Pain: adequately controlled Airway Patency, RR, SpO2: stable & adequate BP & HR: stable & adequate Hydration State: stable & adequate Anesthetic Complications: no major complications apparent
[2016-08-31] MEDS: LACTATED RINGER'S 1000ML 1,000 ML IV SCH ×2 (16:13→23:57)
[2016-08-31] MEDS ORDERED: VENLAFAXINE HCL XR 75 MG CAPXR PO SCH (21:00)
[2016-08-31] MEDS ORDERED: NURSING VERBAL MED ORDER ONE (21:30)
[2016-08-31] MEDS: CEFOXITIN IV 2,000 MG in DEXTROSE 5% 50ML 50 ML IV SCH (22:07)
[2016-09-01 03:31] VITALS: BP 134/85; PULSE 81; TEMP 36.8; O2SAT 95
[2016-09-01] MEDS: CEFOXITIN IV 2,000 MG in DEXTROSE 5% 50ML 50 ML IV SCH (06:04)
[2016-09-01 07:03] VITALS: BP 139/86; PULSE 84; TEMP 37.1; O2SAT 94
--- NOTE | 2016-09-01 07:57 | Anesthesiology Progress Note ---
Anesthesia Post Op Note Date & Time Sep 01, 2016 at 07:57 Vital Signs Vital Signs Past 12 Hours Date Time Temp Pulse Resp B/P Pulse Ox O2 Delivery O2 Flow Rate FiO2 09/01/16 07:39 Room Air 09/01/16 07:03 37.1 84 16 139/86 94 Room Air 09/01/16 03:31 36.8 81 16 134/85 95 Room Air 09/01/16 00:00 Room Air 08/31/16 23:05 37.0 79 16 143/83 94 Room Air Notes Mental Status: alert / awake / arousable, participated in evaluation Pt Amnestic to Procedure: Yes Nausea / Vomiting: adequately controlled Pain: adequately controlled Airway Patency, RR, SpO2: stable & adequate BP & HR: stable & adequate Hydration State: stable & adequate Anesthetic Complications: no major complications apparent
[2016-09-01] MEDS ORDERED: VENLAFAXINE HCL XR 75 MG CAPXR PO SCH (09:00)
--- NOTE | 2016-09-01 09:24 | Surgery Progress Note ---
Surgery Progress Note Date of Service Sep 01, 2016. Subjective Post OP Day: 1 + ambulating (to bathroom), + diet (tolerating full liquids), + feeling well, No SOB, No chest pain, No complaints, No nausea, No vomiting Objective Vital Signs: Date Time Temp Pulse Resp B/P Pulse Ox O2 Delivery O2 Flow Rate FiO2 09/01/16 07:39 Room Air 09/01/16 07:03 37.1 84 16 139/86 94 Room Air 09/01/16 03:31 36.8 81 16 134/85 95 Room Air 09/01/16 00:00 Room Air 08/31/16 23:05 37.0 79 16 143/83 94 Room Air 08/31/16 18:51 36.7 85 17 145/89 95 Room Air 08/31/16 17:54 36.4 85 17 145/86 97 Nasal Cannula 2.0 08/31/16 17:15 36.7 80 17 136/84 98 Nasal Cannula 2.0 08/31/16 16:20 36.6 91 17 127/85 97 Nasal Cannula 2.0 08/31/16 15:50 97 Nasal Cannula 2.0 08/31/16 15:50 36.6 88 17 144/92 97 Nasal Cannula 2.0 08/31/16 15:50 97 Nasal Cannula 2.0 08/31/16 15:35 36.2 84 16 154/92 100 Nasal Cannula 2 08/31/16 15:25 79 16 155/93 100 Nasal Cannula 2 08/31/16 15:15 79 16 163/95 100 Nasal Cannula 2 08/31/16 15:05 81 16 165/90 100 Mask 10 08/31/16 14:56 36.1 70 16 155/92 99 Mask 10 08/31/16 13:52 36.9 82 16 178/97 96 Room Air 08/31/16 13:42 78 20 183/113 100 08/31/16 13:29 99 Room Air 08/31/16 13:02 82 20 181/115 98 Room Air 08/31/16 11:17 78 20 152/99 99 Room Air 08/31/16 09:28 37.2 101 20 182/108 98 Room Air General Appearance: WD/WN, no apparent distress Head: normocephalic, atraumatic Respiratory/Chest: normal breath sounds, no respiratory distress, no accessory muscle use Cardiovascular: regular rate, rhythm Abdomen: non distended, soft, + tenderness (appropriate at incision sites) Incision(s): clean (dressing clean and dry), dry Laboratory Results: Results Past 24 Hours Test 08/31/16 09:38 Range/Units White Blood Count 9.32 4.8-10.8 K/uL Red Blood Count 4.80 4.2-5.4 M/uL Hemoglobin 14.8 12.0-16.0 g/dL Hematocrit 42.2 37-47 % Mean Corpuscular Volume 87.9 80-100 fL Mean Corpuscular Hemoglobin 30.8 25-34 pg Mean Corpuscular Hemoglobin Concent 35.1 32-36 g/dl Platelet Count 271 130-400 K/uL Mean Platelet Volume 10.3 7.4-10.4 fL Neutrophils (%) (Auto) 62.6 % Lymphocytes (%) (Auto) 28.8 % Monocytes (%) (Auto) 6.5 % Eosinophils (%) (Auto) 1.7 % Basophils (%) (Auto) 0.2 % Neutrophils # (Auto) 5.83 1.4-6.5 K/uL Lymphocytes # (Auto) 2.68 1.2-3.4 K/uL Monocytes # (Auto) 0.61 0.11-0.59 K/uL Eosinophils # (Auto) 0.16 0-0.5 K/uL Basophils # (Auto) 0.02 0-0.2 K/uL RDW Standard Deviation 42.9 36.4-46.3 fL RDW Coefficient of Variation 13.2 11.5-14.5 % Immature Granulocyte % (Auto) 0.2 % Immature Granulocyte # (Auto) 0.02 0.00-0.02 K/uL Sodium Level 141 136-145 mmol/L Potassium Level 3.8 3.5-5.1 mmol/L Chloride Level 108 98-107 mmol/L Carbon Dioxide Level 27 21-32 mmol/L Anion Gap 6.0 3-11 mmol/L Blood Urea Nitrogen 17 7-18 mg/dl Creatinine 0.93 0.60-1.20 mg/dl Est Creatinine Clear Calc Drug Dose 85.0 ml/min Estimated GFR () 84.2 Estimated GFR (Non- 72.7 BUN/Creatinine Ratio 18.0 10-20 Random Glucose 91 70-99 mg/dl Calcium Level 8.4 8.5-10.1 mg/dl Total Bilirubin 0.3 0.2-1 mg/dl Aspartate Amino Transf (AST/SGOT) 24 15-37 U/L Alanine Aminotransferase (ALT/SGPT) 38 12-78 U/L Alkaline Phosphatase 123 45-117 U/L Total Protein 8.1 6.4-8.2 gm/dl Albumin 3.6 3.4-5.0 gm/dl Globulin 4.5 2.5-4.0 gm/dl Albumin/Globulin Ratio 0.8 0.9-2 Lipase 153 73-393 U/L Human Chorionic Gonadotropin, Qual NEG NEG Chemistry Specimen Hemolysis Assessment & Plan POD # 1 s/p Laparoscopic appendectomy - vitals stable - pain minimal - tolerating full liquids Plan: Plan for discharge today Restrictions of nothing over 20 pounds for 3 weeks Discharge instructions given Follow-up in office in 2-[address] Cano has seen and examined patient patient, agrees with above stated findings and plan.
--- NOTE | 2016-09-01 09:29 | Discharge Summary ---
Discharge Summary Dates Admission Date / Time: Aug 31, 2016 at 13:49 Discharge Date: Sep 01, 2016 Dispostion / Condition Discharge Disposition: Home Condition at Discharge: Good Principal Diagnosis (1) Acute appendicitis Problem List (1) Acute appendicitis (2) Depression (3) Seasonal allergies Consultations / Procedures Consultations: none Procedures: Laparoscopic Appendectomy Medication Reconciliation New Medications: Oxycodone/Acetaminophen 5MG/325MG (Percocet 5MG/325MG) Tab 1 TABLET PO Q4H PRN for Pain, #30 TAB Continued Medications: Control Pills ( Control Pills) Tab 1 TAB PO DAILY, TAB Cetirizine (Zyrtec) 10 Mg Tab 10 MG PO DAILY, TAB Fluticasone Propionate (Nasal) (Flonase Allergy Relief) 50 Mcg/Act Spr 1 SPRAY YOSI DAILY Lorazepam (Ativan) 0.5 Mg Tab 0.5 MG PO DAILY PRN for Anxiety, TAB Venlafaxine Hcl (Effexor Xr) 75 Mg Cap 75 MG PO DAILY for 30 Days, #30 CAP Admission HPI Per the Admitting provider: Arlen is a pleasant 46 year-old female who presented to emergency department today with complaint of RLQ abdominal pain since Wednesday evening with associated nausea. Arlen states that she thought she was getting her period due to the abdominal cramping however the pain persisted and was different than her usual menstrual cramps. Arlen states the nausea was intense Wednesday evening. Was in her normal state of health on Wednesday. Denies of any fever, chills, vomiting, diarrhea, constipation, or blood in stools. No previous abdominal surgeries. No blood thinning agents. CT scan of abdomen and pelvis shows a dilated appendix measuring 10-11 mm in diameter with rachel-appendiceal inflammation. NO signs of abscess or perforation. No leukocytosis and afebrile on arrival to ED. Currently her pain is minimal. Mostly in the RLQ. No severe pain, no fevers, or chills. Admission Exam Per the Admitting provider: General Appearance: WD/WN, no apparent distress Head: normocephalic, atraumatic Eyes: sclerae normal ENT: hearing grossly normal Neck: supple, trachea midline Respiratory/Chest: lungs clear, normal breath sounds, no respiratory distress, no accessory muscle use Cardiovascular: regular rate, rhythm, no edema, no gallop, no murmur Abdomen/GI: soft, no organomegaly, no pulsatile mass, + tenderness (RLQ, ) Neurologic/Psych: alert, normal mood/affect, oriented x 3 Skin: normal color, warm/dry, no rash Hospital Course (1) Acute appendicitis Patient was taken to the operating room for laparoscopic appendectomy and tolerated procedure well. She was transferred to Med/Surg floor in stable condition. IV fluids, IV cefoxitin, IV Zofran and morphine were ordered as needed for pain. Oral Percocet was also ordered. Diet was advanced to full liquid diet. POD # 1 patient doing well. Preoperative pain resolved, now soreness at incision sites. Had no nausea or vomiting. Tolerated full liquids. Adequate urine output. Pain was minimal without the need for any pain medication. She will be discharged on POD # 1 to home. Overall hospital course was uneventful. Discharge Instructions Ad given to patient Copies To Primary Care Provider: Stanford Mayer M.D..
[2016-09-01] MEDS: LACTATED RINGER'S 1000ML 1,000 ML IV SCH (09:38)
[2016-09-01 09:44] VITALS: BP 139/86; PULSE 84; TEMP 37.1; O2SAT 94
== END 2016-09-01 11:24 | disposition home or self-care (01) ==
LOC: ENRESERVDT → ENRESERVTM → C.EDB 09:23 → C.MSW 13:49
PROVIDERS: ADMIT Surgery; ATTEND Surgery
DX: K35.80 Unspecified acute appendicitis (principal)

== ENCOUNTER → 2017-06-28 | Outpatient (CLI) | payer OTHER ==
[~2017-06-28] MED LIST changes: -OXYC-57 PO
== END | disposition home or self-care (01) ==
LOC: C.PAPS 11:32
PROVIDERS: ATTEND Obstetrics & Gynecology
DX: Z12.4 Encounter for screening for malignant neoplasm of cervix (principal); R87.616 Satisfactory cervical smear but lacking transformation zone